=== PATIENT | male | born 1960 | race African-American/Black ===

== ENCOUNTER 2018-08-14 16:40 | Inpatient (IN) | payer OTHER ==
[2018-08-14 17:13] VITALS: BMI 24.4
--- NOTE | 2018-08-14 18:21 | PDOC ---
History of Present Illness - General Chief Complaint: Diarrhea Stated Complaint: Diarrhea Time Seen by Provider: 08/14/18 17:51 History Source: Patient Exam Limitations: No Limitations - History of Present Illness Initial Comments: 08/14/18 18:19 [id number] with h/o HIV (dx in 1988, on HAART but has not checked CD4 or viral load for 2-3 years), hypothyroidism, suicide attempt via overdose, who p/w profuse nonbloody watery diarrhea x3 days and one episode of NBNB vomiting today. He notes chronic intermittent diarrhea at his baseline but this is much worse than normal for him. He notes malaise and tiredness, as well as burning on urination, but otherwise denies fever, chills, constipation, abdominal pain, chest pain, SOB, cough, headache, or other symptoms. No recent antibiotics or camping. Believes he may have eaten some spoiled mushrooms leftover in his refrigerator. Has been having unprotected oral sex at sex clubs. Past History - Past Medical History Allergies/Adverse Reactions: Allergies Allergy/AdvReac Type Severity Reaction Status Date / Time No Known Allergies Allergy Verified 08/14/18 17:09 Home Medications: Ambulatory Orders Elviteg/Cob/Emtri/Tenof Alafen [Genvoya Tablet] 08/14/18 COPD: No CHF: No - Surgical History Abdominal Surgery: Yes - Immunization History Td Vaccination: Yes Immunization Up to Date: Yes - Suicide/Smoking/Psychosocial Hx Smoking Status: No Smoking History: Never smoked Years of Tobacco Use: 0 Number of Cigarettes Smoked Daily: 0 Cigars Per Day: 0 Hx Alcohol Use: Yes Drug/Substance Use Hx: Yes (MARIJUANA) Substance Use Type: Alcohol, Cocaine, Marijuana Review of Systems - Review of Systems Able to Perform ROS?: Yes Comments:: GEN: generalized weakness, malaise, tiredness, no fever, chills, night sweats, or unintentional weight change HEENT: no ear pain, congestion, sore throat, rhinorrhea, nosebleed, vision change, or eye pain CV: no chest pain, palpitations, lightheadedness, syncope, edema, or exercise intolerance RESP: no cough, wheezing, or SOB GI: nausea, vomiting, diarrhea, no abdominal pain, constipation, appetite change , or white/black/bloody stool : dysuria, no hematuria, frequency, incontinence, retention, pruritis, bleeding, or discharge MSK: no muscle weakness or pain, no muscle wasting, no joint swelling or pain NEURO: no headache, seizure, vertigo, imbalance, numbness, tingling, focal weakness, or difficulty walking/talking PSYCH: no insomnia, behavior change, SI, HI, or substance use SKIN: no prutitis, excessive dryness, jaundice, rash, cuts, or unexplained bruises ROS otherwise negative except as noted in HPI *Physical Exam - Vital Signs Last Vital Signs Temp Pulse Resp BP Pulse Ox 97.8 F 73 16 117/82 100 08/14/18 17:10 08/14/18 17:10 08/14/18 17:10 08/14/18 17:10 08/14/18 17:10 - Physical Exam Comments: 08/14/18 19:25 GENERAL: a bit dehydrated and slightly uncomfortable but nontoxic and otherwise well-appearing, A/Ox4, no distress, answers questions appropriately HEENT: PERRLA, EOMI, slightly dry mucous membranes NECK/BACK: no midline ttp, no spinal stepoff or deformity, no hematoma, full ROM , neck supple CARDIOVASCULAR: regular rate/rhythm, normal S1S2, no MGR, strong peripheral pulses, capillary refill <2 seconds, extremities wwp, no edema LUNGS/RESPIRATORY: no respiratory distress, CTAB GI/ABDOMEN: symmetric [id number], normoactive BS, soft, no ttp, no midline pulsatile masses : no CVA tenderness, penile vitiligo, no lesions, no discharge at the meatus, no tenderness, no testicular swelling EXTREMITIES: no muscle atrophy, no acute deformity, no edema SKIN: warm and dry, no pallor, no jaundice, no rash, no bruising, no skin breakdown, no cuts, no lesions NEUROLOGICAL: GCS 15, CN II-XII grossly intact, 5/5 strength proximally and distally, no facial droop Moderate Sedation - Procedure Monitoring Vital Signs: Procedure Monitoring Vital Signs Temperature 97.8 F 08/14/18 17:10 Pulse Rate 73 08/14/18 17:10 Respiratory Rate 16 08/14/18 17:10 Blood Pressure 117/82 08/14/18 17:10 O2 Sat by Pulse Oximetry (%) 100 08/14/18 17:10 Heart Score/ECG Review #1 08/14/18 23:35 Sinus aida, rate 59, normal axis and intervals, no ischemic ST-T changes ED Treatment Course - LABORATORY CBC & Chemistry Diagram: 08/14/18 18:40 08/14/18 18:40 Medical Decision Making - Medical Decision Making 08/14/18 19:29 Adult male patient with h/o HIV on HAART with unknown CD4 and viral loads p/w profuse watery diarrhea, vomiting. Initial Vital Signs Temp Pulse Resp BP Pulse Ox 97.8 F 73 16 117/82 100 08/14/18 17:10 08/14/18 17:10 08/14/18 17:10 08/14/18 17:10 08/14/18 17:10 Exam: As noted in Physical Exam section. DDX IBNLT: increased secretion (MC is viral with norovirus MC cause for adults and rotavirus MC cause for pediatrics), decreased abdorption, increased osmotic load (e.g. laxatives, colchicine), abnormal motility (e.g. IBS, neuropathy), etc. W/U ordered: labs as noted below, CXR TX ordered: CXR: Laboratory Tests 08/14/18 08/14/18 08/14/18 18:40 18:40 19:50 WBC 5.9 RBC 5.91 H Hgb 17.8 H Hct 51.6 H D MCV 87.2 MCH 30.1 MCHC 34.5 RDW 14.4 Plt Count 166 MPV 7.8 Absolute Neuts (auto) 4.0 Neutrophils % 68.1 D Lymphocytes % 18.3 D Monocytes % 12.3 H Eosinophils % 0.9 Basophils % 0.4 Nucleated RBC % 0 Sodium 137 Potassium 3.9 Chloride 105 Carbon Dioxide 25 Anion Gap 7 L BUN 15 Creatinine 1.4 H Creat Clearance w eGFR 52.24 Random Glucose 89 Calcium 8.5 Magnesium 2.1 Total Bilirubin 1.1 H AST 29 ALT 27 Alkaline Phosphatase 56 Total Protein 7.7 Albumin 4.2 Urine Color Yellow Urine Appearance Clear Urine pH 5.0 Ur Specific [place] 1.028 Urine Protein Negative Urine Glucose (UA) Negative Urine Ketones Negative Urine Blood 2+ H Urine Nitrite Negative Urine Bilirubin Negative Urine Urobilinogen Negative Ur Leukocyte Esterase Negative Urine WBC (Auto) None Urine RBC (Auto) 7 Ur Epithelial Cells Rare Urine Mucus Few Reassessment: Exam unchanged, patient getting 2nd liter IVF, I have ordered 3rd liter and maintenance fluids. Repeat VS: ADMIT The Pt is unsafe for discharge at this time. They require further hospital observation, workup, and treatment. Microblog sent to [facility] for admission. Blank Decision to Admit order is placed per ED protocol. Spoke with admitting team truck sales representative, in agreement Pt to be admitted. Decision to Admit order corrected with admitting team covering attendings name. Decision to Admit order placed to [facility] covering attending 08/14/18 22:00 I spoke with Brendan Gaines; Decision to Admit order corrected with Dr. Rowe's name. 08/14/18 22:20 *DC/Admit/Observation/Transfer Diagnosis at time of Disposition: Diarrhea, HIV (human immunodeficiency virus infection), HYACINTH (acute kidney injury) - Discharge Dispostion Condition at time of disposition: Guarded Decision to Admit order: Yes - Referrals - Patient Instructions - Post Discharge Activity
[2018-08-14] MEDS ORDERED: SODIUM CHLORIDE 0.9% 500 ML INFUS.BAG IV ONE ×3 (18:32→22:00)
--- NOTE | 2018-08-14 19:00 | PDOC ---
Attending Attestation - [facility] HPI: 08/14/18 20:50 The patient is a 58 year old male, with a significant past medical history of HIV (followed at [facility] treated with antiretroviral ( undetectable viral load), who presents to the emergency department for evaluation after multiple episodes of watery brown diarrhea, one episode of NBNB emesis after eating leftover reheated mushroom sauce, and separate complaint of tingling to his penis since receiving oral sex at a nightclub a few nights ago. He reports the tingling to his penis feels like his symptoms with chlamydia in the past. He denies history of syphilis or herpes. He reports a history of giardia. The patient denies chest pain, shortness of breath, headache and dizziness. The patient denies fever, chills, and constipation. The patient denies dysuria, frequency, urgency and hematuria. Allergies: NKDA - Physicial Exam PE: 08/14/18 20:50 Constitutional: Awake, alert, oriented. No acute distress. Head: Normocephalic. Atraumatic Eyes: PERRL. EOMI. Conjunctivae are not pale. ENT: (+) dry mucous membranes. Mucous membranes are intact. Posterior pharynx without exudates or erythema. Uvula midline. Neck: Supple. Full ROM. No lymphadenopathy. Cardiovascular: Regular rate. Regular rhythm. S1, S2 regular. Distal pulses are 2+ and symmetric. Pulmonary/Chest: No evidence of respiratory distress. Clear to auscultation bilaterally No wheezing, rales or rhonchi. Abdominal: Soft and non-distended. There is no tenderness. No rebound, guarding or rigidity. No organomegaly. No palpable masses. Good bowel sounds. Genital: (+) Vitiligo to penile shaft. Circumcised. No lesions or bumps. No rashes. Back: No CVA tenderness. Musculoskeletal: No edema. No cyanosis. No clubbing. Full range of motion in all extremities. Nocalf tenderness. Radial/pedal pulses are intact and 2+ bilaterally Skin: Skin is warm and dry. No petechiae. No purpura. Neurological: Alert and oriented to person, place, and time. Cranial nerves II -XII are grossly intact. Normal speech. Strength is grossly symmetric. No sensory deficits. Psychiatric: Good eye contact. Normal interaction, affect and behavior. - Medical Decision Making 08/14/18 20:51 Documentation prepared by Savannah Velazquez, acting as medical sonographer for Leela Henderson DO <Savannah Velazquez - Last Filed: 08/14/18 20:50> - Resident Resident Name: Gudelia Lott - ED Attending Attestation I have performed the following: I have examined & evaluated the patient, The case was reviewed & discussed with the resident, I agree w/resident's findings & plan, Exceptions are as noted - Medical Decision Making 08/14/18 19:00 I, Dr. Leela Henderson, DO, attest that this document has been prepared under my direction and personally reviewed by me in its entirety. I further attest, that it accurately reflects all work, treatment, procedures and medical decision -making performed by me. 08/14/18 19:19 a/p: 58yo male with hx of HIV on anti-retrovirals and undetectable viral load - followed at [facility] -pt with diarrhea -watery stool since saturday -1 episode of vomiting -no blood -pt without abd cramping or pain -also concern for STI - unprotected oral intercourse -requests testing an treatment for STI exposure -will send lab, hydrate -rocephin, azithro -stool for culture, c diff, giardia -will monitor and reassess 08/14/18 21:31 pt with HYACINTH dehydration still with multiple episodes of diarrhea in the ED will start flagyl 08/14/18 22:00 resident discussed the case with JAELYN who accepts pt to service <Leela Henderson - Last Filed: 08/14/18 22:00>
[2018-08-14 19:13] LABS: BASO % 0.4 % (0-2.0); EOS % 0.9 % (0-4.5); HEMATOCRIT 51.6 % (35.4-49); HEMOGLOBIN 17.8 GM/dL (11.7-16.9); LYMPH % 18.3 % (8-40); MCH 30.1 pg (25.7-33.7); MCHC 34.5 g/dl (32.0-35.9); MEAN CELL VOLUME 87.2 fl (80-96); MEAN PLT VOLUME 7.8 fl (7.5-11.1); MONO % 12.3 % (3.8-10.2); NEUT % 68.1 % (42.8-82.8); PLATELET COUNT 166 K/MM3 (134-434); RBC 5.91 M/mm3 (4.00-5.60); RDW 14.4 % (11.9-15.9); WHITE BLOOD COUNT 5.9 K/mm3 (4.0-10.0)
[2018-08-14] MEDS ORDERED: AZITHROMYCIN 500 MG TABLET PO ONE (19:19)
[2018-08-14 19:32] LABS: ALBUMIN 4.2 g/dl (3.4-5.0); ALK PHOS 56 U/L (45-117); ANION GAP 7 MMOL/L (8-16); BILIRUBIN,TOTAL 1.1 mg/dL (0.2-1); BLOOD UREA NITROGEN 15 mg/dL (7-18); CALCIUM 8.5 mg/dL (8.5-10.1); CHLORIDE 105 mmol/L (98-107); CO2 25 mmol/L (21-32); CREATININE 1.4 mg/dL (0.55-1.3); GLUCOSE,RANDOM 89 mg/dL (74-106); MAGNESIUM 2.1 mg/dL (1.8-2.4); POTASSIUM 3.9 mmol/L (3.5-5.1); SGOT/AST 29 U/L (15-37); SGPT/ALT 27 U/L (13-61); SODIUM 137 mmol/L (136-145); TOT PROT 7.7 g/dl (6.4-8.2)
[2018-08-14] MEDS ORDERED: AZITHROMYCIN 500 MG TABLET ONE (20:04)
[2018-08-14] MEDS ORDERED: cefTRIAXone SODIUM 1 GM VIAL ONE (20:04)
[2018-08-14] MEDS ORDERED: LIDOCAINE HCL 1%, 10 MG/ML (20ML VIAL) ONE (20:05)
[2018-08-14 20:35] LABS: URINE APPEARANCE CLEAR; URINE BILIRUBIN NEGATIVE (<2.0 mg/dL); URINE COLOR YELLOW; URINE GLUCOSE (UA) NEGATIVE (NEGATIVE); URINE KETONE NEGATIVE (NEGATIVE); URINE LEUK ESTERASE NEGATIVE (NEGATIVE); URINE NITRITE NEGATIVE (NEGATIVE); URINE PROTEIN NEGATIVE (NEGATIVE); URINE UROBILINOGEN NEGATIVE mg/dL (0.2-1.0)
[2018-08-14 20:38] LABS: EPI CELLS RARE /HPF (FEW); URINE MUCUS FEW
--- NOTE | 2018-08-14 22:40 | PN ---
Teaching Attending Note Name of Resident: King Manjarrez ATTENDING PHYSICIAN STATEMENT I saw and evaluated the patient. I reviewed the resident's note and discussed the case with the resident. I agree with the resident's findings and plan as documented. SUBJECTIVE: Patient is a 58 year old man with PMH of polysubstance abuse, HIV disease (dx in 1988, on HAART - "Genvoya", but has not checked CD4 or viral load for 2-3 years), hypothyroidism, suicide attempt via overdose, who presents with profuse nonbloody watery diarrhea x3 days and one episode of NBNB vomiting today. He notes chronic intermittent diarrhea at his baseline but this is much worse than normal for him. He notes malaise and tiredness, as well as burning on urination , but otherwise denies fever, chills, constipation, abdominal pain, chest pain, SOB, cough, headache, or other symptoms. No recent antibiotics or camping. Believes he may have eaten some spoiled mushrooms leftover in his refrigerator. Has been having unprotected oral sex at sex clubs. OBJECTIVE: Alert Vital Signs Period Temp Pulse Resp BP Sys/Calvin Pulse Ox Last 24 Hr 97.8 F 73 16 117/82 100 HEENT: No Jaundice, eye redness or discharge, PERRLA, EOMI. Normocephalic, atraumatic. External ears are normal and hearing is grossly intact. No nasal discharge. Neck: Supple, nontender. No palpable adenopathy or thyromegaly. No JVD Chest: Good effort. Clear to auscultation and percussion. Heart: Regular. No S3, rub or murmur Abdomen: Not distended, soft, nontender and no HSM. No rebound or guarding. Normoactive bowel sounds. Ext: Peripheral pulses intact. No leg edema. Skin: Warm and dry. No petechiae, rash or ecchymosis. Neuro: Alert. Oriented x3. CN 2-12 grossly intact. Sensation grossly intact in all four extremities and DTR are symmetric. Current Medications Generic Name Dose Route Start Last Admin Trade Name Freq PRN Reason Stop Dose Admin Sodium Chloride 1,000 mls @ 125 mls/hr 08/14/18 22:15 Normal Saline - IV ASDIR [facility] Home Medications Medication Instructions Recorded Sitagliptin Phosphate [Januvia] 0 mg PO DAILY 08/14/18 Abnormal Lab Results 08/14/18 08/14/18 08/14/18 18:40 18:40 19:50 RBC 5.91 H Hgb 17.8 H Hct 51.6 H D Monocytes % 12.3 H Anion Gap 7 L Creatinine 1.4 H Total Bilirubin 1.1 H Urine Blood 2+ H ASSESSMENT AND PLAN: 1. Gastroenteritis - May be viral or due to an opportunistic infection related to HIV disease. Stool being sent for infectious work up including C.Diff, cryptosporidium and ova and parasite. Workup for STIs done. Will treat with IV NS at 100 ml/hour, get his records from [facility] and get CT of the abdomen. Hematuria is a concern - will monitor. Will await results of workup before any drug treatment. No indication for antibiotics at this time. Consult ID. 2. DVT prophylaxis - Heparin 5000u sq tid. 3. Advance directives - Full code
--- NOTE | 2018-08-14 22:59 | HP ---
CHIEF COMPLAINT: PCP: Dyllan Cash HISTORY OF PRESENT ILLNESS: 58 yo M PMH of polysubstance abuse, HIV disease (dx in 1988, on HAART - "Genvoya ", last checked CD4 or viral load 04/2018, follows at [facility]), hypothyroidism, suicide attempt via overdose, p/w profuse nonbloody watery diarrhea x3 days and one episode of NBNB vomiting today. He notes chronic intermittent diarrhea at his baseline but this is much worse than normal for him. GI sxs began 3 days ago after having eaten some spoiled mushrooms leftover in his refrigerator. He also endorses malaise and tiredness, and thinks he may have had burning on urination as well but is unsure. Has been having unprotected oral sex at sex clubs. Otherwise denies fever, chills, constipation, abdominal pain, cp, SOB, cough, headache, or other symptoms. No recent antibiotics or camping. ER course was notable for: (1) 2L NS, CTX/Azithro (2) ekg: sinus aida at 60, nl axis, no acute st/t wave findings (3) ucx, stool cx, stool O/P, stool C diff, chlamydia/gono testing Recent Travel: denies PAST MEDICAL HISTORY: colonoscopy ~10yrs ago? was nl? PAST SURGICAL HISTORY: Social History: Smoking: denies Alcohol:2-3 heavy drinks/week Drugs: marijuana Family History: Allergies No Known Allergies Allergy (Verified 08/14/18 17:09) HOME MEDICATIONS: Home Medications Medication Instructions Recorded Sitagliptin Phosphate [Januvia] 0 mg PO DAILY 08/14/18 REVIEW OF SYSTEMS as per hpi PHYSICAL EXAMINATION Vital Signs - 24 hr 08/14/18 08/14/18 17:10 22:51 Temperature 97.8 F 97.8 F Pulse Rate 73 Pulse Rate [ 70 Right Radial] Respiratory 16 17 Rate Blood Pressure 117/82 Blood Pressure 121/78 [Right Arm] O2 Sat by Pulse 100 100 Oximetry (%) GENERAL: Awake, alert, and fully oriented, in no acute distress. HEAD: NCAT EYES: Pupils equal, round and reactive to light, extraocular movements intact, sclera anicteric, conjunctiva clear. No lid lag. EARS, NOSE, THROAT: nares patent, oropharynx clear without exudates. MMM NECK: Normal range of motion, supple without lymphadenopathy, JVD, or masses. LUNGS: CTAB HEART: RRR, normal S1 and S2 without murmur, rub or gallop. ABDOMEN: Soft, NTND, normoactive bowel sounds, no guarding, no rebound, no masses. MUSCULOSKELETAL: Normal range of motion at all joints. No bony deformities or tenderness. UPPER EXTREMITIES: 2+ pulses, warm, well-perfused. No cyanosis. No clubbing. No peripheral edema. LOWER EXTREMITIES: 2+ pulses, warm, well-perfused. No calf tenderness. No peripheral edema. NEUROLOGICAL: Cranial nerves II-XII intact. Normal speech. PSYCHIATRIC: Cooperative. Good eye contact. Appropriate mood and affect. SKIN: Warm, dry, normal turgor, no rashes or lesions noted, normal capillary refill. Laboratory Results - last 24 hr 08/14/18 08/14/18 08/14/18 18:40 18:40 19:50 WBC 5.9 RBC 5.91 H Hgb 17.8 H Hct 51.6 H D MCV 87.2 MCH 30.1 MCHC 34.5 RDW 14.4 Plt Count 166 MPV 7.8 Absolute Neuts (auto) 4.0 Neutrophils % 68.1 D Lymphocytes % 18.3 D Monocytes % 12.3 H Eosinophils % 0.9 Basophils % 0.4 Nucleated RBC % 0 Sodium 137 Potassium 3.9 Chloride 105 Carbon Dioxide 25 Anion Gap 7 L BUN 15 Creatinine 1.4 H Creat Clearance w eGFR 52.24 Random Glucose 89 Calcium 8.5 Magnesium 2.1 Total Bilirubin 1.1 H AST 29 ALT 27 Alkaline Phosphatase 56 Total Protein 7.7 Albumin 4.2 Urine Color Yellow Urine Appearance Clear Urine pH 5.0 Ur Specific [place] 1.028 Urine Protein Negative Urine Glucose (UA) Negative Urine Ketones Negative Urine Blood 2+ H Urine Nitrite Negative Urine Bilirubin Negative Urine Urobilinogen Negative Ur Leukocyte Esterase Negative Urine WBC (Auto) None Urine RBC (Auto) 7 Ur Epithelial Cells Rare Urine Mucus Few ASSESSMENT/PLAN: 58 yo M PMH of polysubstance abuse, HIV disease (dx in 1988, on HAART - "Genvoya ", last checked CD4 or viral load 04/2018, follows at [facility]), hypothyroidism, suicide attempt via overdose, p/w profuse nonbloody watery diarrhea x3 days and one episode of NBNB vomiting today. Gastroenteritis - May be viral or due to an opportunistic infection related to HIV disease. will need to obtain records from [facility] regarding his last CD4 and viral load s/p 2L NS, CTX/Azithro in ED Stool being sent for infectious work up: f/u stool cx, stool O/P, stool C diff, cryptosporidium NS 125cc f/u CT A/P No indication for abx at this time ID consult check lipase f/u ucx CXR nl Hematuria is a concern - will monitor. Dysuria - Has been having unprotected oral sex at sex clubs Workup for STIs: f/u RPR, chlamydia/gono testing. HYACINTH - likely prerenal 2/2 dehydration 2/2 diarrhea. Cr 1.4 (baseline 1.1) IVF monitor Cr FEN NS 125cc replete prn Regular diet prophylaxis - Lovenox 40 sq qd Full code Dispo obs Visit type - Emergency Visit Emergency Visit: Yes ED Registration Date: 08/14/18 Care time: The patient presented to the Emergency Department on the above date and was hospitalized for further evaluation of their emergent condition. - New Patient This patient is new to me today: Yes Date on this admission: 08/15/18 - Critical Care Critical Care patient: No
[2018-08-14] MEDS ORDERED: SODIUM CHLORIDE 1,000 ML IV SCH (23:00)
[2018-08-15] MEDS ORDERED: PNEUMOC 13-VAL CONJ-DIP CRM/PF 0.5 ML DISP.SYRIN IM ONE (01:52)
[2018-08-15 08:16] LABS: BASO % 0.3 % (0-2.0); EOS % 2.9 % (0-4.5); HEMOGLOBIN 14.6 GM/dL (11.7-16.9); LYMPH % 32.6 % (8-40); MCH 28.5 pg (25.7-33.7); MCHC 32.5 g/dl (32.0-35.9); MEAN CELL VOLUME 87.7 fl (80-96); MEAN PLT VOLUME 7.8 fl (7.5-11.1); MONO % 13.7 % (3.8-10.2); NEUT % 50.5 % (42.8-82.8); PLATELET COUNT 120 K/MM3 (134-434); RBC 5.14 M/mm3 (4.00-5.60); RDW 14.1 % (11.9-15.9); WHITE BLOOD COUNT 3.8 K/mm3 (4.0-10.0)
[2018-08-15 08:36] LABS: INR 1.29 (0.83-1.09); PROTHROMBIN TIME (PATIENT) 15.3 SEC (9.7-13.0)
--- NOTE | 2018-08-15 09:16 | EKG ---
Test Reason : Blood Pressure : / mmHG Vent. Rate : 059 BPM Atrial Rate : 059 BPM P-R Int : 152 ms QRS Dur : 090 ms QT Int : 414 ms P-R-T Axes : 049 -06 029 degrees QTc Int : 409 ms SINUS BRADYCARDIA OTHERWISE NORMAL ECG WHEN COMPARED WITH ECG OF 06-JAN-2013 08:57, NO SIGNIFICANT CHANGE WAS FOUND Confirmed by DEEP CANO MD ([id number]) on 08/15/2018 9:15:32 AM Referred By: Confirmed By:DEEP CANO MD
[2018-08-15] MEDS ORDERED: PNEUMOCOCCAL 23 VACCINE 0.5 ML VIAL IM ONE (10:00)
[2018-08-15 10:54] LABS: ALBUMIN 3.1 g/dl (3.4-5.0); ALK PHOS 41 U/L (45-117); ANION GAP 7 MMOL/L (8-16); BILIRUBIN,TOTAL 0.5 mg/dL (0.2-1); BLOOD UREA NITROGEN 12 mg/dL (7-18); CALCIUM 7.6 mg/dL (8.5-10.1); CHLORIDE 112 mmol/L (98-107); CO2 21 mmol/L (21-32); CREATININE 1.2 mg/dL (0.55-1.3); GLUCOSE,RANDOM 83 mg/dL (74-106); MAGNESIUM 1.9 mg/dL (1.8-2.4); PHOSPHOROUS 2.4 mg/dL (2.5-4.9); POTASSIUM 3.6 mmol/L (3.5-5.1); SGOT/AST 23 U/L (15-37); SGPT/ALT 24 U/L (13-61); SODIUM 140 mmol/L (136-145); TOT PROT 6.2 g/dl (6.4-8.2)
[2018-08-15 14:16] LABS: LIPASE 76 U/L (73-393)
--- NOTE | 2018-08-15 14:21 | PN ---
Progress Note (short form) - Note Progress Note: ID CONSULT DICTATED ACUTE GASTROENTERITIS HIV+ ? AIDS AWAIT STOOL STUDIES CHECK CD4 OBTAIN MOST RECENT VIRAL MARKERS FROM [facility] CONT ART OBSERVE OFF ANTIBIOTICS
--- NOTE | 2018-08-15 14:47 | CONS ---
DATE OF CONSULTATION: DATE OF DICTATION: 08/15/2018 The patient is a 58-year-old male, longstanding history of HIV infection, evaluated for gastroenteritis. The patient states he consumed mushrooms which were in his refrigerator which may have been spoiled approximately 3 days ago. He subsequently developed profuse watery diarrhea and episode of nonbilious, nonbloody vomiting. He denied any abdominal pain. No vomiting or mouna red blood, hematemesis, rectal bleeding, or melena. No associated fever or chills. Patient states he has chronic diarrhea; however, this episode was unusual. No other ill contacts. Denied any recent antibiotic therapy or travel. He has a longstanding history of HIV infection dating back to 1988. He reports adherence to his antiretroviral therapy, with occasional missed dose. He is unaware of his most recent viral markers; however, he states he thinks he is undetectable, with a good T cell count. Patient also complained of some dysuria and admits to unprotected sexual activity. PAST MEDICAL HISTORY: Positive for HIV infection diagnosed in 1988, history of hypothyroidism. ALLERGIES: No known allergies. REVIEW OF SYSTEMS: Neurologic: No loss of consciousness, seizure activity, focal weakness. Cardiac: Negative chest pain or palpitations. Respiratory: Negative cough or sputum production. Gastrointestinal: As per HPI. Genitourinary: Negative for urinary tract infection. LABORATORY DATA: White count 3.8, 50 neutrophils, 32 lymphocytes, 13 monocytes, hematocrit 45.0, platelet count 120. Creatinine 1.2. Lipase 76. Liver enzymes normal. PHYSICAL EXAMINATION: General: He is somewhat weak appearing, supine in bed. Vital Signs: Temperature at 98.1, blood pressure 110/69, pulse 51, regular. Respirations 18 per minute. HEENT: Sclerae are anicteric. Dry mucous membranes. Cardiovascular: Heart sounds S1, S2. Respiratory: Lungs clear. Abdomen: Soft and nontender. Extremities: Negative for edema. IMPRESSION: 1. Acute gastroenteritis. 2. Human immunodeficiency virus positive, possible acquired immunodeficiency syndrome. 3. Leukopenia and thrombocytopenia. Obtain stool for culture and sensitivity, ova and parasites, Clostridium difficile, norovirus, rotavirus, stool for Giardia, cryptosporidium isospora. Obtain CD4, lymphocyte count. Obtain most recent viral markers from his primary provider at [facility]. Continue antiretroviral therapy. Observe off antibiotic therapy. YEIMI ZEPEDA M.D. [id number]
[2018-08-15] MEDS: SODIUM CHLORIDE 1,000 ML IV SCH (17:45)
[2018-08-15] MEDS: DOLUTEGRAVIR SODIUM 50 MG TABLET (NON-FORMULARY) PO SCH (17:48)
[2018-08-15] MEDS: EMTRICITABINE 200MG/TENOFOVIR 300MG PO SCH (17:48)
--- NOTE | 2018-08-15 18:24 | PN ---
Physical Exam: SUBJECTIVE: Patient seen and examined at bedside this morning. He endorses numerous episodes of brown, liquid diarrhea without dyschezia, mouna blood or melena. He is tolerating breakfast without abdominal pain, nausea, or vomiting today. He denies subjective fevers or chills. OBJECTIVE: Vital Signs Period Temp Pulse Resp BP Sys/Calvin Pulse Ox Last 24 Hr 97.8 F-98.1 F 51-70 17-20 106-126/58-78 98-100 GENERAL: The patient is awake, alert, and fully oriented, in no acute distress. HEAD: Normal with no signs of trauma. EYES: PERRL, extraocular movements intact, sclera anicteric. ENT: Oropharynx clear without exudates, moist mucous membranes. NECK: Supple without lymphadenopathy. LUNGS: Good inspiratory effort. Clear to auscultation B/L. No wheezes or crackles auscultated. No accessory muscle use. HEART: Regular rate and rhythm, S1, S2 without murmur, rub or gallop. ABDOMEN: Soft, nontender to light and deep palpation X4 quadrants, nondistended. Normoactive bowel sounds X4 quadrants. No hepatomegaly or splenomegaly palpated or percussed. EXTREMITIES: 2+ radial and dosralis pedis pulses b/l. Warm, well-perfused. No lower extremity edema B/L. NEUROLOGICAL: Cranial nerves II through XII grossly intact. Normal speech PSYCH: Normal mood, normal affect upon my encounter today. SKIN: Warm, dry. Laboratory Results - last 24 hr 08/14/18 08/14/18 08/14/18 18:40 18:40 18:46 WBC 5.9 RBC 5.91 H Hgb 17.8 H Hct 51.6 H D MCV 87.2 MCH 30.1 MCHC 34.5 RDW 14.4 Plt Count 166 MPV 7.8 Absolute Neuts (auto) 4.0 Neutrophils % 68.1 D Lymphocytes % 18.3 D Monocytes % 12.3 H Eosinophils % 0.9 Basophils % 0.4 Nucleated RBC % 0 PT with INR INR PTT (Actin FS) Sodium 137 Potassium 3.9 Chloride 105 Carbon Dioxide 25 Anion Gap 7 L BUN 15 Creatinine 1.4 H Creat Clearance w eGFR 52.24 Random Glucose 89 Calcium 8.5 Phosphorus Magnesium 2.1 Total Bilirubin 1.1 H AST 29 ALT 27 Alkaline Phosphatase 56 Total Protein 7.7 Albumin 4.2 Lipase 76 Urine Color Urine Appearance Urine pH Ur Specific [place] Urine Protein Urine Glucose (UA) Urine Ketones Urine Blood Urine Nitrite Urine Bilirubin Urine Urobilinogen Ur Leukocyte Esterase Urine WBC (Auto) Urine RBC (Auto) Ur Epithelial Cells Urine Mucus RPR Titer Nonreactive 08/14/18 08/15/18 08/15/18 19:50 07:30 07:30 WBC 3.8 L RBC 5.14 Hgb 14.6 Hct 45.0 MCV 87.7 MCH 28.5 MCHC 32.5 RDW 14.1 Plt Count 120 L D MPV 7.8 Absolute Neuts (auto) 1.9 Neutrophils % 50.5 D Lymphocytes % 32.6 D Monocytes % 13.7 H Eosinophils % 2.9 D Basophils % 0.3 Nucleated RBC % 0 PT with INR 15.30 H INR 1.29 H PTT (Actin FS) 29.0 Sodium Potassium Chloride Carbon Dioxide Anion Gap BUN Creatinine Creat Clearance w eGFR Random Glucose Calcium Phosphorus Magnesium Total Bilirubin AST ALT Alkaline Phosphatase Total Protein Albumin Lipase Urine Color Yellow Urine Appearance Clear Urine pH 5.0 Ur Specific [place] 1.028 Urine Protein Negative Urine Glucose (UA) Negative Urine Ketones Negative Urine Blood 2+ H Urine Nitrite Negative Urine Bilirubin Negative Urine Urobilinogen Negative Ur Leukocyte Esterase Negative Urine WBC (Auto) None Urine RBC (Auto) 7 Ur Epithelial Cells Rare Urine Mucus Few RPR Titer 08/15/18 07:30 WBC RBC Hgb Hct MCV MCH MCHC RDW Plt Count MPV Absolute Neuts (auto) Neutrophils % Lymphocytes % Monocytes % Eosinophils % Basophils % Nucleated RBC % PT with INR INR PTT (Actin FS) Sodium 140 Potassium 3.6 Chloride 112 H Carbon Dioxide 21 Anion Gap 7 L BUN 12 Creatinine 1.2 Creat Clearance w eGFR > 60 Random Glucose 83 Calcium 7.6 L Phosphorus 2.4 L Magnesium 1.9 Total Bilirubin 0.5 AST 23 ALT 24 Alkaline Phosphatase 41 L Total Protein 6.2 L Albumin 3.1 L Lipase Urine Color Urine Appearance Urine pH Ur Specific [place] Urine Protein Urine Glucose (UA) Urine Ketones Urine Blood Urine Nitrite Urine Bilirubin Urine Urobilinogen Ur Leukocyte Esterase Urine WBC (Auto) Urine RBC (Auto) Ur Epithelial Cells Urine Mucus RPR Titer Active Medications Generic Name Dose Route Start Last Admin Trade Name Freq PRN Reason Stop Dose Admin Emtricitabine/Tenofovir 1 tab 08/15/18 17:15 08/15/18 17:48 Truvada PO 1 tab DAILY K[facility]OR Administration Enoxaparin Sodium 40 mg 08/15/18 23:15 Lovenox - SQ DAILY K[facility]OR Sodium Chloride 1,000 mls @ 125 mls/hr 08/14/18 22:15 08/15/18 17:45 Normal Saline - IV 125 mls/hr ASDIR KISHOR Administration ASSESSMENT/PLAN: Patient is a 58 year old male with 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 Diarrhea -Likely secondary to viral gastroenteritis. -ID consult (Dr. Lowe) appreciated. Will observe off antibiotics for now -F/U CT abdomen, pelvis -F/U stool culture -F/U stool for C. difficile, cryptosporidium, giardia, norovirus, rotavirus, ova and parasites HIV -Patient admits he is not fully compliant with HAART. Takes Genvoya at home -Formulation unavailable at this institution. Patient states no one is able to bring his medication from home. -After discussion with patient and ID will begin Truvada and Tivicay. Dysuria -UA negative for UTI -Urine culture negative -F/U urine for gonorrhea, chlamydia HYACINTH -Likely secondary to dehydration due to diarrhea - Baseline creatinine noted approx. 1.1 -IV normal saline at 125mL/ hour FEN -IV normal saline at 125mL/ hour -Follow CMP -Regular diet Prophylaxis -Lovenox 40mg subq daily Disposition -Continue observation in medical surgical floor Visit type - Emergency Visit Emergency Visit: Yes ED Registration Date: 08/14/18 Care time: The patient presented to the Emergency Department on the above date and was hospitalized for further evaluation of their emergent condition. - New Patient This patient is new to me today: Yes Date on this admission: 08/15/18 - Critical Care Critical Care patient: No - Discharge Referral Referred to [facility] Med P.C.: No
--- NOTE | 2018-08-15 19:05 | PN ---
Teaching Attending Note Name of Resident: Glen Rojas ATTENDING PHYSICIAN STATEMENT I saw and evaluated the patient. I reviewed the resident's note and discussed the case with the resident. I agree with the resident's findings and plan as documented. SUBJECTIVE: Feeling a bit better. Still complains of loose stool - no abdominal pain/nausea/vomiting. No fever/chills. OBJECTIVE: Afebrile, Hemodynamically Stable. Last Vital Signs Temp Pulse Resp BP Pulse Ox 98.1 F 52 L 18 106/58 L 98 08/15/18 15:33 08/15/18 15:33 08/15/18 15:33 08/15/18 15:33 08/15/18 15:00 HEENT - Atraumatic, Normocephalic Heart - S1, S2, RRR Lungs - clear to auscultation Abdomen - Soft, non-tender. Bowel Sounds normal. Extremities - no edema, no calf tenderness Skin - Vertiligo UEs/R elbow/hands. Laboratory Results - last 24 hr 08/14/18 08/14/18 08/14/18 18:40 18:40 18:46 WBC 5.9 RBC 5.91 H Hgb 17.8 H Hct 51.6 H D MCV 87.2 MCH 30.1 MCHC 34.5 RDW 14.4 Plt Count 166 MPV 7.8 Absolute Neuts (auto) 4.0 Neutrophils % 68.1 D Lymphocytes % 18.3 D Monocytes % 12.3 H Eosinophils % 0.9 Basophils % 0.4 Nucleated RBC % 0 PT with INR INR PTT (Actin FS) Sodium 137 Potassium 3.9 Chloride 105 Carbon Dioxide 25 Anion Gap 7 L BUN 15 Creatinine 1.4 H Creat Clearance w eGFR 52.24 Random Glucose 89 Calcium 8.5 Phosphorus Magnesium 2.1 Total Bilirubin 1.1 H AST 29 ALT 27 Alkaline Phosphatase 56 Total Protein 7.7 Albumin 4.2 Lipase 76 Urine Color Urine Appearance Urine pH Ur Specific [place] Urine Protein Urine Glucose (UA) Urine Ketones Urine Blood Urine Nitrite Urine Bilirubin Urine Urobilinogen Ur Leukocyte Esterase Urine WBC (Auto) Urine RBC (Auto) Ur Epithelial Cells Urine Mucus RPR Titer Nonreactive 08/14/18 08/15/18 08/15/18 19:50 07:30 07:30 WBC 3.8 L RBC 5.14 Hgb 14.6 Hct 45.0 MCV 87.7 MCH 28.5 MCHC 32.5 RDW 14.1 Plt Count 120 L D MPV 7.8 Absolute Neuts (auto) 1.9 Neutrophils % 50.5 D Lymphocytes % 32.6 D Monocytes % 13.7 H Eosinophils % 2.9 D Basophils % 0.3 Nucleated RBC % 0 PT with INR 15.30 H INR 1.29 H PTT (Actin FS) 29.0 Sodium Potassium Chloride Carbon Dioxide Anion Gap BUN Creatinine Creat Clearance w eGFR Random Glucose Calcium Phosphorus Magnesium Total Bilirubin AST ALT Alkaline Phosphatase Total Protein Albumin Lipase Urine Color Yellow Urine Appearance Clear Urine pH 5.0 Ur Specific [place] 1.028 Urine Protein Negative Urine Glucose (UA) Negative Urine Ketones Negative Urine Blood 2+ H Urine Nitrite Negative Urine Bilirubin Negative Urine Urobilinogen Negative Ur Leukocyte Esterase Negative Urine WBC (Auto) None Urine RBC (Auto) 7 Ur Epithelial Cells Rare Urine Mucus Few RPR Titer 08/15/18 07:30 WBC RBC Hgb Hct MCV MCH MCHC RDW Plt Count MPV Absolute Neuts (auto) Neutrophils % Lymphocytes % Monocytes % Eosinophils % Basophils % Nucleated RBC % PT with INR INR PTT (Actin FS) Sodium 140 Potassium 3.6 Chloride 112 H Carbon Dioxide 21 Anion Gap 7 L BUN 12 Creatinine 1.2 Creat Clearance w eGFR > 60 Random Glucose 83 Calcium 7.6 L Phosphorus 2.4 L Magnesium 1.9 Total Bilirubin 0.5 AST 23 ALT 24 Alkaline Phosphatase 41 L Total Protein 6.2 L Albumin 3.1 L Lipase Urine Color Urine Appearance Urine pH Ur Specific [place] Urine Protein Urine Glucose (UA) Urine Ketones Urine Blood Urine Nitrite Urine Bilirubin Urine Urobilinogen Ur Leukocyte Esterase Urine WBC (Auto) Urine RBC (Auto) Ur Epithelial Cells Urine Mucus RPR Titer Current Medications Generic Name Dose Route Start Last Admin Trade Name Freq PRN Reason Stop Dose Admin Emtricitabine/Tenofovir 1 tab 08/15/18 17:15 08/15/18 17:48 Truvada PO 1 tab DAILY [facility] Administration Enoxaparin Sodium 40 mg 08/15/18 23:15 Lovenox - SQ DAILY [facility] Sodium Chloride 1,000 mls @ 125 mls/hr 08/14/18 22:15 08/15/18 17:45 Normal Saline - IV 125 mls/hr ASDIR KISHOR Administration ASSESSMENT/PLAN: 58 year old Male with with HIV on HAART, History of Polysubstance Abuse, Hypothyroidism, prior suicide attempt by OD, presented with 3 day history of watery, non-bloody diarrhea and vomiting. No hematemesis, melena, hematochezia. 1. Gastroenteritis, likely viral Rule out infective diarrhea with Stool Cx and Cdiff. CT A/P pending Abx held at this time. Resumed on HAART. ID consulted for further recommendations. 2. Urinalysis positive for blood No gross hematuria Urine Cx/Ch/Gn sent due to reports of possible dysuria 3. HYACINTH - secondary to intravascular volume depletion due to diarrhea - resolving with IV hydration. DVT Px - Lovenox
[2018-08-15] MEDS: ENOXAPARIN NA (PORCINE) 40 MG/0.4 ML DISP.SYRIN SQ SCH (23:11)
[2018-08-16 08:30] LABS: HEMATOCRIT 41.4 % (35.4-49); HEMOGLOBIN 13.5 GM/dL (11.7-16.9); MCH 28.6 pg (25.7-33.7); MCHC 32.7 g/dl (32.0-35.9); MEAN CELL VOLUME 87.3 fl (80-96); MEAN PLT VOLUME 8.3 fl (7.5-11.1); PLATELET COUNT 115 K/MM3 (134-434); RBC 4.74 M/mm3 (4.00-5.60); WHITE BLOOD COUNT 3.7 K/mm3 (4.0-10.0)
[2018-08-16] MEDS ORDERED: PT OWN MED DRAWER 7, Y5N ONE (08:51)
[2018-08-16 09:09] LABS: ALBUMIN 2.8 g/dl (3.4-5.0); ALK PHOS 40 U/L (45-117); ANION GAP 6 MMOL/L (8-16); BILIRUBIN,TOTAL 0.5 mg/dL (0.2-1); BLOOD UREA NITROGEN 9 mg/dL (7-18); CALCIUM 7.4 mg/dL (8.5-10.1); CHLORIDE 114 mmol/L (98-107); CO2 20 mmol/L (21-32); CREATININE 0.9 mg/dL (0.55-1.3); GLUCOSE,RANDOM 75 mg/dL (74-106); POTASSIUM 3.7 mmol/L (3.5-5.1); SGOT/AST 21 U/L (15-37); SGPT/ALT 21 U/L (13-61); SODIUM 139 mmol/L (136-145); TOT PROT 5.2 g/dl (6.4-8.2)
[2018-08-16] MEDS: ENOXAPARIN NA (PORCINE) 40 MG/0.4 ML DISP.SYRIN SQ SCH (09:39)
[2018-08-16] MEDS: SODIUM CHLORIDE 1,000 ML IV SCH (09:41)
[2018-08-16] MEDS: EMTRICITABINE 200MG/TENOFOVIR 300MG PO SCH (09:43)
[2018-08-16] MEDS: DOLUTEGRAVIR SODIUM 50 MG TABLET (NON-FORMULARY) PO SCH (09:44)
--- NOTE | 2018-08-16 12:47 | PN ---
Physical Exam: SUBJECTIVE: Patient seen and examined at bedside this morning. He endorses continued diarrhea that is liquid brown, however one bowel movement paste- like in consistency earlier today. No mouna blood with bowel movements. Denies fevers or chills. Tolerating regular diet well without abdominal pain, nausea, or vomiting. OBJECTIVE: Vital Signs Period Temp Pulse Resp BP Sys/Calvin Pulse Ox Last 24 Hr 98.1 F-98.8 F 52-78 18-18 94-130/58-88 98-98 GENERAL: The patient is awake, alert, and fully oriented, in no acute distress. HEAD: Normal with no signs of trauma. EYES: PERRL, extraocular movements intact, sclera anicteric. ENT: Oropharynx clear without exudates, moist mucous membranes. NECK: Supple without lymphadenopathy. LUNGS: Good inspiratory effort. Clear to auscultation B/L. No wheezes or crackles auscultated. No accessory muscle use. HEART: Regular rate and rhythm, S1, S2 without murmur, rub or gallop. ABDOMEN: Soft, nontender to light and deep palpation X4 quadrants, nondistended. Normoactive bowel sounds X4 quadrants. No hepatomegaly or splenomegaly palpated or percussed. EXTREMITIES: 2+ radial and dosralis pedis pulses b/l. Warm, well-perfused. No lower extremity edema B/L. NEUROLOGICAL: Cranial nerves II through XII grossly intact. Normal speech PSYCH: Normal mood, normal affect upon my encounter today. SKIN: Warm, dry. Vitilligo noted along hands, and elbows. Laboratory Results - last 24 hr 08/14/18 08/16/18 08/16/18 18:40 07:30 07:30 WBC 3.7 L RBC 4.74 Hgb 13.5 Hct 41.4 MCV 87.3 MCH 28.6 MCHC 32.7 RDW 14.0 Plt Count 115 L MPV 8.3 Sodium 139 Potassium 3.7 Chloride 114 H Carbon Dioxide 20 L Anion Gap 6 L BUN 9 Creatinine 0.9 Creat Clearance w eGFR > 60 Random Glucose 75 Calcium 7.4 L Total Bilirubin 0.5 AST 21 ALT 21 Alkaline Phosphatase 40 L Total Protein 5.2 L Albumin 2.8 L Lipase 76 Active Medications Generic Name Dose Route Start Last Admin Trade Name Freq PRN Reason Stop Dose Admin Emtricitabine/Tenofovir 1 tab 08/15/18 17:15 08/16/18 09:43 Truvada PO 1 tab DAILY K[facility]OR Administration Enoxaparin Sodium 40 mg 08/15/18 23:15 08/16/18 09:39 Lovenox - SQ 40 mg DAILY [facility] Administration Sodium Chloride 1,000 mls @ 125 mls/hr 08/14/18 22:15 08/16/18 09:41 Normal Saline - IV 125 mls/hr ASDIR KISHOR Administration ASSESSMENT/PLAN: Patient is a 58 year old male with 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 Diarrhea -Likely secondary to viral gastroenteritis. -ID consult (Dr. Lowe) appreciated. Will observe off antibiotics for now -F/U CT abdomen, pelvis -Stool culture negative. -Stool negative for C. difficile, cryptosporidium, giardia. F/U norovirus, rotavirus, ova and parasites -Immodium 4mg PO Q6H PRN HIV -Patient admits he is not fully compliant with HAART. Takes Genvoya at home -Formulation unavailable at this institution. Patient states no one is able to bring his medication from home. -After discussion with patient and ID will begin Truvada and Tivicay. Dysuria -resolved -UA negative for UTI -Urine culture negative -F/U urine for gonorrhea, chlamydia HYACINTH -resolved with IV hydration -Likely secondary to dehydration due to diarrhea -Baseline creatinine noted approx. 1.1 FEN -No IV fluids. Encourage judicious oral hydration. -Follow CMP -Regular diet Prophylaxis -Lovenox 40mg subq daily Disposition -Patient admitted to medical surgical floor Visit type - Emergency Visit Emergency Visit: Yes ED Registration Date: 08/16/18 Care time: The patient presented to the Emergency Department on the above date and was hospitalized for further evaluation of their emergent condition. - New Patient This patient is new to me today: No - Critical Care Critical Care patient: No - Discharge Referral Referred to [facility] Med P.C.: No
[2018-08-16] MEDS ORDERED: LOPERAMIDE HCL 2 MG CAPSULE PO PRN (16:11)
--- NOTE | 2018-08-16 16:11 | PN ---
Teaching Attending Note Name of Resident: Glen Rojas ATTENDING PHYSICIAN STATEMENT I saw and evaluated the patient. I reviewed the resident's note and discussed the case with the resident. I agree with the resident's findings and plan as documented. SUBJECTIVE: Still complains of diarrhea - watery, non-bloody. No fever. No abdominal pain. No nausea/vomiting. OBJECTIVE: Afebrile, Hemodynamically Stable, Comfortable. Last Vital Signs Temp Pulse Resp BP Pulse Ox 98.8 F 78 18 94/64 98 08/16/18 06:00 08/16/18 06:00 08/16/18 07:00 08/16/18 06:00 08/16/18 07:00 HEENT - Atraumatic, Normocephalic Heart - S1, S2, RRR Lungs - clear to auscultation Abdomen - Soft, non-tender. Bowel Sounds normal. Extremities - no edema, no calf tenderness Skin - Vertiligo UEs/R elbow/hands. Laboratory Results - last 24 hr 08/14/18 08/16/18 08/16/18 19:50 07:30 07:30 WBC 3.7 L RBC 4.74 Hgb 13.5 Hct 41.4 MCV 87.3 MCH 28.6 MCHC 32.7 RDW 14.0 Plt Count 115 L MPV 8.3 Sodium 139 Potassium 3.7 Chloride 114 H Carbon Dioxide 20 L Anion Gap 6 L BUN 9 Creatinine 0.9 Creat Clearance w eGFR > 60 Random Glucose 75 Calcium 7.4 L Total Bilirubin 0.5 AST 21 ALT 21 Alkaline Phosphatase 40 L Total Protein 5.2 L Albumin 2.8 L Stool O & P Wet [place] & P Permanent Slide Final report Current Medications Generic Name Dose Route Start Last Admin Trade Name Freq PRN Reason Stop Dose Admin Emtricitabine/Tenofovir 1 tab 08/15/18 17:15 08/16/18 09:43 Truvada PO 1 tab DAILY [facility] Administration Enoxaparin Sodium 40 mg 08/15/18 23:15 08/16/18 09:39 Lovenox - SQ 40 mg DAILY K[facility] Administration ASSESSMENT/PLAN: 58 year old Male with with HIV on HAART, History of Polysubstance Abuse, Hypothyroidism, prior suicide attempt by OD, presented with 3 day history of watery, non-bloody diarrhea and vomiting. No hematemesis, melena, hematochezia. 1. Gastroenteritis, likely viral Ruled out infective diarrhea with Stool Crypto, Cx and Cdiff, which are negative. CT A/P still pending. No Abx at this time. Resumed on HAART. ID consulted for further recommendations. Will give immodium. 2. Urinalysis positive for blood No gross hematuria Urine Cx/Ch/Gn sent due to reports of possible dysuria 3. HYACINTH - secondary to intravascular volume depletion due to diarrhea - resolving with IV hydration. DVT Px - Lovenox Patient converted to in-patient due to HYACINTH sec to ongoing profuse diarrhea causing fluid loss, intra-vascular volume depletion, renal hypoperfusion and HYACINTH , requiring ongoing IV fluid resuscitation.
[2018-08-16 20:00] VITALS: PULSE 50; TEMP 98.1
[2018-08-17] MEDS ORDERED: PT OWN MED DRAWER 7, Y5N ONE (09:41)
[2018-08-17] MEDS: DOLUTEGRAVIR SODIUM 50 MG TABLET (NON-FORMULARY) PO SCH (09:43)
[2018-08-17] MEDS: EMTRICITABINE 200MG/TENOFOVIR 300MG PO SCH (09:44)
[2018-08-17] MEDS: ENOXAPARIN NA (PORCINE) 40 MG/0.4 ML DISP.SYRIN SQ SCH (09:47)
[2018-08-17 10:48] LABS: CO2 26 mmol/L (21-32); CREATININE 1.2 mg/dL (0.55-1.3)
[2018-08-17 10:49] LABS: ALBUMIN 3.3 g/dl (3.4-5.0)
[2018-08-17] MEDS ORDERED: POTASSIUM CHLORIDE TABS 20 MEQ TABLET.ER (FP) PO ONE (11:35)
[2018-08-17 12:26] VITALS: BP 108/66
[2018-08-17 12:33] LABS: ALK PHOS 52 U/L (45-117); ANION GAP 6 MMOL/L (8-16); BILIRUBIN,TOTAL 0.2 mg/dL (0.2-1); BLOOD UREA NITROGEN 9 mg/dL (7-18); CALCIUM 8.2 mg/dL (8.5-10.1); CHLORIDE 111 mmol/L (98-107); GLUCOSE,RANDOM 123 mg/dL (74-106); POTASSIUM 3.4 mmol/L (3.5-5.1); SGOT/AST 22 U/L (15-37); SGPT/ALT 21 U/L (13-61); SODIUM 142 mmol/L (136-145)
[2018-08-17 14:06] LABS: HEMATOCRIT 42.9 % (35.4-49); HEMOGLOBIN 14.1 GM/dL (11.7-16.9); MCH 28.5 pg (25.7-33.7); MCHC 32.9 g/dl (32.0-35.9); MEAN CELL VOLUME 86.6 fl (80-96); MEAN PLT VOLUME 8.1 fl (7.5-11.1); PLATELET COUNT 128 K/MM3 (134-434); RBC 4.95 M/mm3 (4.00-5.60); RDW 14.1 % (11.9-15.9)
--- NOTE | 2018-08-17 16:20 | DS ---
Physical Exam: SUBJECTIVE: Diarrhea much improved. No fever. No abdominal pain. No nausea/ vomiting. OBJECTIVE: Afebrile, Hemodynamically Stable, Comfortable. Last Vital Signs Temp Pulse Resp BP Pulse Ox 98.1 F 50 L 20 108/66 98 08/17/18 10:00 08/17/18 10:00 08/17/18 10:00 08/17/18 10:00 08/16/18 23:00 HEENT - Atraumatic, Normocephalic Heart - S1, S2, RRR Lungs - clear to auscultation Abdomen - Soft, non-tender. Bowel Sounds normal. Extremities - no edema, no calf tenderness Skin - Vertiligo UEs/R elbow/hands. Laboratory Results - last 24 hr 08/17/18 08/17/18 07:00 07:00 WBC 4.0 RBC 4.95 Hgb 14.1 Hct 42.9 MCV 86.6 MCH 28.5 MCHC 32.9 RDW 14.1 Plt Count 128 L MPV 8.1 Sodium 142 Potassium 3.4 L Chloride 111 H Carbon Dioxide 26 Anion Gap 6 L BUN 9 Creatinine 1.2 Creat Clearance w eGFR > 60 Random Glucose 123 H Calcium 8.2 L Total Bilirubin 0.2 AST 22 ALT 21 Alkaline Phosphatase 52 Total Protein 6.0 L Albumin 3.3 L Date of Admission:08/16/18 Date of Discharge: 08/17/18 Minutes to complete discharge: 45 Discharge Summary Reason For Visit: ACUTE KIDNEY INJURY DIARRHEA HUMAN IMMUNODEFICIENC Current Active Problems HYACINTH (acute kidney injury) (Acute) Diarrhea (Acute) HIV (human immunodeficiency virus infection) (Acute) Hospital Course: 58 year old Male with with HIV on HAART, History of Polysubstance Abuse, Hypothyroidism, prior suicide attempt by OD, presented with 3 day history of watery, non-bloody diarrhea and vomiting. No hematemesis, melena, hematochezia. He received supportive care, IV hydration, with improvement in his diarrhea. 1. Gastroenteritis, likely viral Ruled out infective diarrhea with Stool Crypto, Cx and Cdiff, which are negative. CT A/P - borderline hepatomegaly, no acute intra-abdominal process. Evaluated BY ID - Resumed on HAART All cultures negative including Cdiff, Crypto, Ecoli. Resumed on home immodium. His symptoms have significantly improved and he is medically/hemodynamically stable for discharge with stool habit back to baseline. 2. Urinalysis positive for blood with some reported vague Dysuria No gross hematuria Urine Cx negative. Ch/Gn titers pending - can follow with ID as out-patient. No renal abnormality on CT imaging. 3. HYACINTH - secondary to intravascular volume depletion due to diarrhea - resolved with IV hydration and cessation of profuse diarrhea. Condition: Good - Instructions Diet, Activity, Other Instructions: Follow with ID on discharge. Can consider Gastroenterology consult as an out-patient if any persistent diarrhea Referrals: Dyllan Cash MD [Primary Care Provider] - Disposition: HOME - Home Medications Comprehensive Discharge Medication List: Ambulatory Orders Elviteg/Cob/Emtri/Tenof Alafen [Genvoya Tablet] 1 tab PO DAILY 08/14/18 Loperamide HCl [Loperamide] 1 cap PO QID PRN 08/15/18 Sertraline HCl [Zoloft] 100 mg PO DAILY 08/15/18 This patient is new to me today: No Emergency Visit: Yes ED Registration Date: 08/16/18 Care time: The patient presented to the Emergency Department on the above date and was hospitalized for further evaluation of their emergent condition. Critical Care patient: No - Discharge Referral Referred to [facility] Med P.C.: No
== END 2018-08-17 18:26 | disposition home or self-care (01) | DRG 392 ==
LOC: JER 16:40 → JERBED 21:33 → J6S 08-15 01:10 → OBSVTOIN 08-16 09:47
PROVIDERS: ADMIT Internal Medicine
DX: A08.4 Viral intestinal infection, unspecified (principal); N17.9 Acute kidney failure, unspecified; E03.9 Hypothyroidism, unspecified; Z91.5 Personal history of self-harm; Z21 Asymptomatic human immunodeficiency virus [HIV] infection status; E86.0 Dehydration; R30.0 Dysuria; D69.6 Thrombocytopenia, unspecified; Z91.14 Patient's other noncompliance with medication regimen
CPT/HCPCS: 36415; 71046-TC-FY; 74177-TC; 80053; 81003; 81015; 83690; 83735; 84100; 85025; 85027; 85610; 85730; 86359; 86360; 86593; 87045; 87046; 87086; 87177; 87209; 87324; 87328; 87449; 87491; 87591; 87798; 93005; 93010; 99282-25; G0378; J7030

== ENCOUNTER 2019-03-13 22:22 | Emergency (ER) | payer OTHER ==
[2019-03-13 22:31] VITALS: TEMP 99.8; BMI 25.0
--- NOTE | 2019-03-14 00:21 | PDOC ---
History of Present Illness - General Chief Complaint: Cold Symptoms Stated Complaint: COLD SYMPTOMS Time Seen by Provider: 03/14/19 00:20 History Source: Patient Exam Limitations: No Limitations - History of Present Illness Initial Comments: 03/14/19 00:20 58yo man with pmh HIV (dx in 1988, intermittently compliant with HAART, unknown CD4 with "now detectable" viral load), hypothyroidism, suicide attempt via overdose, who p/w diarrhea, throat pain, and a cough since yesterday. Pt reports he felt unwell yesterday and began having a cough productive of clear sputum. Reports mucinex DM helped with these symptoms in the past. Had not tried any medications this time. Denies fever, chills, nausea, vomiting. Some shortness of breath and chest pain while coughing. No blood in the sputum. No sick contacts. Never smoker. Diarrhea was only stool, no blood, reports he hasn' t had a full meal since yesterday; eating starburst in bed and asking for a sandwich and juice. Also endorses dysuria. PMH: as above PSH: denies NKDA Meds: Noncompliant Past History - Travel Traveled outside of the country in the last 30 days: No Close contact w/someone who was outside of country & ill: No - Past Medical History Allergies/Adverse Reactions: Allergies Allergy/AdvReac Type Severity Reaction Status Date / Time No Known Allergies Allergy Verified 03/14/19 02:13 Home Medications: Ambulatory Orders Elviteg/Cob/Emtri/Tenof Alafen [Genvoya Tablet] 1 tab PO DAILY 08/14/18 Loperamide HCl [Loperamide] 1 cap PO QID PRN 08/15/18 Sertraline HCl [Zoloft] 100 mg PO DAILY 08/15/18 COPD: No CHF: No - Surgical History Abdominal Surgery: Yes - Immunization History Td Vaccination: Yes Immunization Up to Date: Yes - Suicide/Smoking/Psychosocial Hx Smoking Status: No Smoking History: Never smoked Years of Tobacco Use: 0 Number of Cigarettes Smoked Daily: 0 Cigars Per Day: 0 Hx Alcohol Use: No Drug/Substance Use Hx: No Substance Use Type: Alcohol, Cocaine, Marijuana Review of Systems - Review of Systems Able to Perform ROS?: Yes Is the patient limited Portuguese proficient: No Constitutional: No: Chills, Diaphoresis, Fever, Night Sweats, Weakness HEENTM: No: Symptoms Reported Respiratory: Yes: Cough, Shortness of Breath, Productive cough (clear sputum). No: Wheezing, Hemoptysis Cardiac (ROS): Yes: Chest Pain (with cough) ABD/GI: Yes: Diarrhea. No: Abdominal Distended, Nausea, Vomiting, Abdominal cramping : Yes: Dysuria. No: Flank Pain, Hematuria, Incontinence Musculoskeletal: No: Symptoms Reported Integumentary: No: Symptoms Reported Neurological: No: Symptoms reported All Other Systems: Reviewed and Negative *Physical Exam - Vital Signs Last Vital Signs Temp Pulse Resp BP Pulse Ox 99.8 F H 78 19 105/67 95 03/13/19 22:28 03/13/19 22:28 03/13/19 22:28 03/13/19 22:28 03/13/19 22:28 - Physical Exam Comments: 03/14/19 01:42 Vitals reviewed, AFHDS Gen: WDWN man, appears stated age, laying in bed coughing with a mask on HEENT: nasal discharge, clear sputum from cough tissue, EOMI, throat noninjected CV: RRR, nl s1/s2, no murmurs appreciated Pulm: CTA on right, reduced breath sounds throughout the left lung field, no wheezes rales or rhonchi appreciated Abd: soft, nontender, nondistended Pulses: 2+ radial and Pt Ext: WWP, no clubbing / cyanosis / edema ED Treatment Course - LABORATORY CBC & Chemistry Diagram: 03/14/19 01:07 03/14/19 01:07 Medical Decision Making - Medical Decision Making 03/14/19 01:00 58yo man with pmh HIV (dx in 1988, intermittently compliant with HAART, unknown CD4 with "now detectable" viral load), hypothyroidism, suicide attempt via overdose, who p/w diarrhea, throat pain, and a cough since yesterday. R/o PNA, concern for infection in HIV positive man with unknown immune status. 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 Your work up was negative. Please follow up with your primary care provider in the next few days if symptoms persist. Please return to the department for any new or worsening symptoms including but not limited to; difficulty breathing, chest pain, coughing up blood, inability to tolerate food by mouth, blood per rectum or persistent diarrhea. - Post Discharge Activity
[2019-03-14] MEDS ORDERED: KETOROLAC TROMETHAMINE 30 MG/1 ML VIAL IVPUSH ONE (00:39)
[2019-03-14] MEDS ORDERED: SODIUM CHLORIDE 1,000 ML IV STA (00:40)
[2019-03-14] MEDS ORDERED: KETOROLAC TROMETHAMINE 30 MG/1 ML VIAL ONE (01:01)
--- NOTE | 2019-03-14 01:06 | PDOC ---
Documentation entered by Meenu Floyd SCRIBE, acting as scribe for Yousif Bob MD. Yousif Bob MD: This documentation has been prepared by the Everett burrell Adrianna, SCRIBE, under my direction and personally reviewed by me in its entirety. I confirm that the documentation accurately reflects all work, treatment, procedures, and medical decision making performed by me. Attending Attestation - Resident Resident Name: Jimenez,Dion - [facility] HPI: The patient is a 58 year old male, with a significant PMH of HIV (dx in 1988, on HAART but has not checked CD4 or viral load for 2-3 years), hypothyroidism, and previous suicide attempt (via overdose), who presents to the ED for evaluation of sore throat, cough, and diarrhea for one day. Patient reports sore throat with productive cough of yellow sputum. He additionally reports loose, watery stool. Patient notes decreased PO intake secondary to diarrhea, and reports feeling slightly short of breath. Denies fever, chills, nausea, vomit, or sick contacts. Allergies: NKA, NKDA Surgical History: None reported Social History: Smokes marijuana. Denies EtOH, tobacco, or illicit drug use. PCP: Dr. Cash - Physicial Exam PE: 03/14/19 01:04 supine in stretcher appears uncomfortable mmm rrr s1 s2 no mrg ctab no wheezes rales or rhonchi soft non tender non distended abdomen no LE edema - Medical Decision Making 03/14/19 01:05 99.8 orally hemodynamically stable HIV poorly compliant with haart unknown CD4, diarrhea yesterday now resolved labs CXR ua/ucx fluids reassess - if workup negative may be candidate for outpatient f/u with pmd
[2019-03-14 01:30] LABS: BASO % 0.2 % (0-2.0); EOS % 1.2 % (0-4.5); HEMATOCRIT 47.7 % (35.4-49); HEMOGLOBIN 16.2 GM/dL (11.7-16.9); MCH 30.2 pg (25.7-33.7); MEAN CELL VOLUME 88.9 fl (80-96); MEAN PLT VOLUME 8.8 fl (7.5-11.1); MONO % 5.7 % (3.8-10.2); NEUT % 82.9 % (42.8-82.8); PLATELET COUNT 134 K/MM3 (134-434); RBC 5.37 M/mm3 (4.00-5.60); RDW 14.4 % (11.9-15.9); WHITE BLOOD COUNT 7.6 K/mm3 (4.0-10.0)
[2019-03-14 02:04] LABS: ALBUMIN 3.8 g/dl (3.4-5.0); BILIRUBIN,TOTAL 0.9 mg/dL (0.2-1); BLOOD UREA NITROGEN 11.5 mg/dL (7-18); CALCIUM 8.7 mg/dL (8.5-10.1); CREATININE 1.3 mg/dL (0.55-1.3)
[2019-03-14 03:07] LABS: EPI CELLS 2.4 /HPF (0-5/HPF); HYALINE CASTS 10 /lpf (0-8); URINE APPEARANCE CLEAR; URINE BACTERIA 5.7 /hpf (NEGATIVE); URINE BILIRUBIN NEGATIVE (NEGATIVE); URINE COLOR YELLOW; URINE GLUCOSE (UA) NEGATIVE (NEGATIVE); URINE KETONE 1+ (NEGATIVE); URINE LEUK ESTERASE 1+ (NEGATIVE); URINE NITRITE NEGATIVE (NEGATIVE); URINE PROTEIN NEGATIVE (NEGATIVE); URINE RBC 13 /hpf (0-4); URINE UROBILINOGEN 0.2 mg/dL (0.2-1.0); URINE WBC 5 /hpf (0-5)
[2019-03-14 05:03] VITALS: BP 116/76; PULSE 84
== END 2019-03-14 05:05 | disposition home or self-care (01) ==
LOC: JER 22:22
PROC: 3E033NZ Introduction of Analgesics, Hypnotics, Sedatives into Peripheral Vein, Percutaneous Approach (ICD-10-PCS; principal; 2019-03-13)
PROC: 3E0333Z Introduction of Anti-inflammatory into Peripheral Vein, Percutaneous Approach (ICD-10-PCS; 2019-03-13)
DX: B97.89 Other viral agents as the cause of diseases classified elsewhere (principal); J06.9 Acute upper respiratory infection, unspecified; E03.9 Hypothyroidism, unspecified; Z21 Asymptomatic human immunodeficiency virus [HIV] infection status; Z91.5 Personal history of self-harm
CPT/HCPCS: 36415; 71046-TC-FY; 80053; 81003; 85025; 87086; 96361; 96374; 99283-25; J7030

== ENCOUNTER 2020-10-22 17:17 | Emergency (ER) | payer OTHER ==
[2020-10-22 17:33] VITALS: TEMP 97.7; BMI 27.1
[2020-10-22] MEDS ORDERED: ACETAMINOPHEN 325 MG TABLET (FP) PO ONE (18:22)
[2020-10-22] MEDS ORDERED: LACTATED RINGERS SOLUTION 1000 ML INFUS.BAG IV ONE (18:22)
[2020-10-22] MEDS ORDERED: ACETAMINOPHEN 325 MG TABLET (FP) ONE (18:38)
[2020-10-22 18:47] LABS: BASO % 0.4 % (0-2.0); EOS % 1.7 % (0-4.5); HEMATOCRIT 46.4 % (35.4-49); HEMOGLOBIN 15.6 GM/dL (11.7-16.9); LYMPH % 12.7 % (8-40); MCH 30.2 pg (25.7-33.7); MCHC 33.7 g/dl (32.0-35.9); MEAN CELL VOLUME 89.7 fl (80-96); MEAN PLT VOLUME 8.2 fl (7.5-11.1); MONO % 8.3 % (3.8-10.2); NEUT % 76.9 % (42.8-82.8); PLATELET COUNT 124 K/MM3 (134-434); RBC 5.17 M/mm3 (4.00-5.60); WHITE BLOOD COUNT 6.7 K/mm3 (4.0-10.0)
[2020-10-22 18:53] LABS: INR 1.15 (0.83-1.09); PROTHROMBIN TIME (PATIENT) 14.1 SEC (9.7-13.0)
[2020-10-22 18:55] LABS: ACTIVATED PTT 33.1 SECONDS (25.2-36.5)
[2020-10-22 19:08] LABS: POTASSIUM 3.8 mmol/L (3.5-5.1)
[2020-10-22 19:10] LABS: CALCIUM 8.9 mg/dL (8.5-10.1)
[2020-10-22 19:11] LABS: ALBUMIN 3.4 g/dl (3.4-5.0)
[2020-10-22 19:14] LABS: CREATININE 1.2 mg/dL (0.55-1.3)
[2020-10-22 19:16] LABS: BILIRUBIN,TOTAL 0.3 mg/dL (0.2-1); TOT PROT 6.9 g/dl (6.4-8.2)
[2020-10-22] MEDS ORDERED: CEPHALEXIN MONOHYDRATE 500 MG CAPSULE (UD) PO ONE (21:38)
[2020-10-22] MEDS ORDERED: SULFAMETHOXAZOLE/TRIMETHOPRIM 800MG/160MG D.S. TABLET PO ONE (21:39)
[2020-10-22] MEDS ORDERED: SULFAMETHOXAZOLE/TRIMETHOPRIM 800MG/160MG D.S. TABLET ONE (22:23)
[2020-10-22] MEDS ORDERED: CEPHALEXIN MONOHYDRATE 250 MG CAPSULE (FP) ONE (22:25)
[2020-10-22 23:02] VITALS: BP 107/65; PULSE 60
== END 2020-10-22 22:37 | disposition home or self-care (01) ==
LOC: JER 17:17
DX: R19.7 Diarrhea, unspecified (principal); L03.317 Cellulitis of buttock; B20 Human immunodeficiency virus [HIV] disease
CPT/HCPCS: 36415; 72192-TC; 74177-TC; 76857; 80053; 83735; 85025; 85610; 85730; 99285-25; Q9967

== ENCOUNTER 2021-03-02 21:55 | Emergency (ER) | payer OTHER ==
[2021-03-02 22:09] VITALS: TEMP 97.6; BMI 26.4
[2021-03-02] MEDS ORDERED: ACETAMINOPHEN 325 MG TABLET (FP) PO ONE (22:36)
[2021-03-02] MEDS ORDERED: ACETAMINOPHEN 325 MG TABLET (FP) ONE (22:50)
[2021-03-02] MEDS ORDERED: LIDOCAINE HCL 5% TOP OINTMENT 50 GM TUBE TP ONE (22:52)
[2021-03-02] MEDS ORDERED: LIDOCAINE HCL 1%, 10 MG/ML (50 mL VIAL) SQ ONE (22:52)
[2021-03-02] MEDS ORDERED: BUPIVACAINE HCL/PF 0.5% (5 MG/ML) 30 ML VIAL IJ ONE (22:53)
[2021-03-02] MEDS ORDERED: LIDOCAINE HCL 1%, 10 MG/ML (20ML VIAL) ONE (23:13)
[2021-03-02] MEDS ORDERED: BUPIVACAINE HCL/PF 0.5% (5MG/ML) 10 ML VIAL ONE (23:13)
[2021-03-03 00:10] VITALS: BP 136/85; PULSE 62
== END 2021-03-03 00:16 | disposition home or self-care (01) ==
LOC: JER 21:55
DX: K08.9 Disorder of teeth and supporting structures, unspecified (principal)
CPT/HCPCS: 99283-25

== ENCOUNTER 2021-03-03 11:43 | Emergency (ER) | payer OTHER ==
[2021-03-03 12:15] VITALS: BP 138/78; PULSE 66; TEMP 98.4; BMI 26.8
== END 2021-03-03 13:09 | disposition home or self-care (01) ==
LOC: JER 11:43
DX: K08.89 Other specified disorders of teeth and supporting structures (principal)
CPT/HCPCS: 99283-25

== ENCOUNTER 2021-09-03 14:22 | Emergency (ER) | payer OTHER ==
[2021-09-03 14:47] VITALS: BP 148/91; PULSE 71; TEMP 98.1; BMI 25.0
[2021-09-03] MEDS ORDERED: METOCLOPRAMIDE HCL INJECTION 10 MG/2 ML VIAL IVPB ONE (15:17)
[2021-09-03] MEDS ORDERED: METOCLOPRAMIDE HCL INJECTION 10 MG/2 ML VIAL ONE (15:21)
[2021-09-03 15:42] LABS: BASO % 0.5 % (0-2.0); EOS % 0.6 % (0-4.5); HEMATOCRIT 46.8 % (35.4-49); HEMOGLOBIN 15.7 GM/dL (11.7-16.9); LYMPH % 14.7 % (8-40); MCH 29.4 pg (25.7-33.7); MCHC 33.7 g/dl (32.0-35.9); MEAN CELL VOLUME 87.3 fl (80-96); MEAN PLT VOLUME 7.8 fl (7.5-11.1); MONO % 11.4 % (3.8-10.2); NEUT % 72.8 % (42.8-82.8); PLATELET COUNT 145 10^3/uL (134-434); RBC 5.36 M/mm3 (4.00-5.60); RDW 15.1 % (11.9-15.9); WHITE BLOOD COUNT 9.7 K/mm3 (4.0-10.0)
[2021-09-03 15:50] LABS: CHLORIDE 105 mmol/L (98-107); SODIUM 140 mmol/L (136-145)
[2021-09-03 15:52] LABS: CALCIUM 9.1 mg/dL (8.5-10.1)
[2021-09-03 15:53] LABS: ALBUMIN 3.9 g/dl (3.4-5.0); ANION GAP 5 MMOL/L (8-16); BLOOD UREA NITROGEN 10.3 mg/dL (7-18); CO2 30 mmol/L (21-32); GLUCOSE,RANDOM 91 mg/dL (74-106)
[2021-09-03 15:56] LABS: SGOT/AST 26 U/L (15-37); SGPT/ALT 43 U/L (13-61)
[2021-09-03 15:57] LABS: TOT PROT 7.1 g/dl (6.4-8.2)
[2021-09-03 15:58] LABS: BILIRUBIN,TOTAL 0.6 mg/dL (0.2-1)
[2021-09-03 15:59] LABS: ALK PHOS 56 U/L (45-117)
[2021-09-03] MEDS ORDERED: ACETAMINOPHEN 1000 MG/100 ML BAG IVPB ONE (16:25)
[2021-09-03] MEDS ORDERED: ACETAMINOPHEN INJECTION 100 ML IVPB ONE (16:46)
== END 2021-09-03 18:01 | disposition home or self-care (01) ==
LOC: JER 14:22
PROC: 3E033GC Introduction of Other Therapeutic Substance into Peripheral Vein, Percutaneous Approach (ICD-10-PCS; principal; 2021-09-03)
DX: G44.201 Tension-type headache, unspecified, intractable (principal); J34.0 Abscess, furuncle and carbuncle of nose
CPT/HCPCS: 36415; 70450-TC; 80053; 84484; 85025; 87804; 93005; 93010; 96374; 96375; 99285-25; C9803; J0131; U0003; U0005

== ENCOUNTER 2021-09-22 03:29 | Emergency (ER) | payer OTHER ==
[2021-09-22 04:38] VITALS: TEMP 97.9; BMI 26.4
[2021-09-22] MEDS ORDERED: METHOCARBAMOL 500 MG TABLET PO ONE (05:14)
[2021-09-22] MEDS ORDERED: KETOROLAC TROMETHAMINE 15 MG/ML VIAL IVPUSH ONE (05:14)
[2021-09-22] MEDS ORDERED: LIDOCAINE 5% TOPICAL PATCH TP ONE ×2 (05:14→06:30)
[2021-09-22] MEDS ORDERED: KETOROLAC TROMETHAMINE 15 MG/ML VIAL ONE (05:17)
[2021-09-22] MEDS ORDERED: LIDOCAINE 5% TOPICAL PATCH ONE ×2 (05:17→06:51)
[2021-09-22] MEDS ORDERED: METHOCARBAMOL 500 MG TABLET ONE (05:17)
[2021-09-22 05:39] VITALS: BP 111/74; PULSE 65
[2021-09-22 05:42] LABS: BASO % 0.3 % (0-2.0); EOS % 1.1 % (0-4.5); HEMATOCRIT 44.4 % (35.4-49); HEMOGLOBIN 14.6 GM/dL (11.7-16.9); LYMPH % 16.3 % (8-40); MCH 29.3 pg (25.7-33.7); MEAN PLT VOLUME 7.8 fl (7.5-11.1); MONO % 8.3 % (3.8-10.2); PLATELET COUNT 156 10^3/uL (134-434); RBC 4.98 M/mm3 (4.00-5.60); RDW 15.6 % (11.9-15.9); WHITE BLOOD COUNT 9.1 K/mm3 (4.0-10.0)
[2021-09-22 06:10] LABS: ALBUMIN 3.4 g/dl (3.4-5.0); BLOOD UREA NITROGEN 17.9 mg/dL (7-18); CALCIUM 8.7 mg/dL (8.5-10.1)
[2021-09-22 06:13] LABS: CREATININE 1.2 mg/dL (0.55-1.3)
[2021-09-22 06:15] LABS: BILIRUBIN,TOTAL 0.5 mg/dL (0.2-1); TOT PROT 6.5 g/dl (6.4-8.2)
[2021-09-22] MEDS ORDERED: LIDOCAINE PATCH REMOVAL MC SCH ×2 (22:00)
== END 2021-09-22 08:05 | disposition home or self-care (01) ==
LOC: JER 03:29
PROC: 3E0333Z Introduction of Anti-inflammatory into Peripheral Vein, Percutaneous Approach (ICD-10-PCS; principal; 2021-09-22)
DX: M54.9 Dorsalgia, unspecified (principal); M62.830 Muscle spasm of back
CPT/HCPCS: 36415; 80053; 82962; 85025; 96374; 99284-25

== ENCOUNTER 2022-12-09 20:15 | Emergency (ER) | payer OTHER ==
[2022-12-09 20:33] VITALS: BP 122/86; PULSE 67; RESP 20; TEMP 98; BMI 25.0
[2022-12-09] MEDS ORDERED: ALBUTEROL SO4 2.5/IPRATROPIUM 0.5 INH SOL 3 ML VIAL.NEB. NEB ONE ×2 (21:10→21:12)
== END 2022-12-09 21:36 | disposition home or self-care (01) ==
LOC: JER 20:15 → JERFT 20:15
PROC: 3E0F7GC Introduction of Other Therapeutic Substance into Respiratory Tract, Via Natural or Artificial Opening (ICD-10-PCS; principal; 2022-12-09)
DX: R05.3 Chronic cough (principal); R09.81 Nasal congestion; R09.3 Abnormal sputum; R09.89 Other specified symptoms and signs involving the circulatory and respiratory systems; Z20.822 Contact with and (suspected) exposure to COVID-19
CPT/HCPCS: 0241U-QW; 71046-TC-FY; 94640; 99284-25

== ENCOUNTER 2023-02-03 13:20 | Emergency (ER) | payer OTHER ==
[2023-02-03 13:31] VITALS: BP 97/63; PULSE 56; RESP 18; TEMP 97.8; BMI 25.8
[2023-02-03] MEDS ORDERED: ACETAMINOPHEN 500 MG TABLET (FP) PO ONE (14:05)
[2023-02-03] MEDS ORDERED: ACETAMINOPHEN 325 MG TABLET (FP) ONE (14:10)
== END 2023-02-03 15:38 | disposition home or self-care (01) ==
LOC: JER 13:20
PROC: 0H95XZZ Drainage of Chest Skin, External Approach (ICD-10-PCS; principal; 2023-02-03)
DX: L02.213 Cutaneous abscess of chest wall (principal)
CPT/HCPCS: 10060; 99283-25